=== PATIENT | female | born 1990 | race Caucasian/White ===

== ENCOUNTER 2022-01-10 13:53 | Emergency (ER) | payer SELFPAY ==
--- NOTE | 2022-01-10 14:00 | ERPHSYRPT ---
- History of Present Illness Time Seen by Provider: 01/10/22 13:59 Source: patient Exam Limitations: no limitations Physician History: This is a 31-year-old overweight white female with no local physician who moved to this area approximately 2 months ago from [place] and is diabetic. She presents with approximately 2-day history of enlarging right neck mass. She is not short of breath but she does have some discomfort that is mild when swallowing. She does smoke daily. She is never had anything like this in the past. Timing/Duration: day(s) (2) Cough Quality/Degree: no cough Possible Cause: no prior episodes Associated Symptoms: sore throat, other (Right neck massenlarging) Allergies/Adverse Reactions: hydromorphone [From Dilaudid] Allergy (Severe, Verified 01/10/22 14:06) Difficulty Breathing Home Medications: Metformin HCl 500 mg [Glucophage 500 MG] 1,000 mg PO HS 01/10/22 [History] Travel Risk - International Travel Have you traveled outside of the country in past 3 weeks: No - Coronavirus Screening Are you exhibiting any of the following symptoms?: No Close contact with a COVID-19 positive Pt in past 14-21 Days: No - Review of Systems Constitutional: No Symptoms Eyes: No Symptoms Ears, Nose, & Throat: Throat Pain (Mild), Other (Right neck mass) Respiratory: No Symptoms Cardiac: No Symptoms Abdominal/Gastrointestinal: No Symptoms Genitourinary Symptoms: No Symptoms Musculoskeletal: No Symptoms Skin: No Symptoms Neurological: No Symptoms Psychological: No Symptoms Endocrine: No Symptoms Hematologic/Lymphatic: No Symptoms Immunological/Allergic: No Symptoms All Other Systems: Reviewed and Negative - Past Medical History Pertinent Past Medical History: Yes - Past Surgical History Past Surgical History: Yes - Nursing Vital Signs Nursing Vital Signs: Initial Vital Signs Temperature 97.6 F 01/10/22 13:59 Respiratory Rate 16 01/10/22 13:59 Pain Scale Pain Intensity 0 - Physical Exam General Appearance: no apparent distress, alert, anxiety, obese Eye Exam: PERRL/EOMI, eyes nml inspection Ears, Nose, Throat Exam: pharynx normal, moist mucous membranes, other (Palpable right mass? Cervical lymphadenopathy) Neck Exam: supple, full range of motion, lymphadenopathy (Right side), other (No stridor) Respiratory Exam: normal breath sounds, lungs clear, airway intact, No chest tenderness, No respiratory distress, No rhonchi, No wheezing, No stridor Cardiovascular Exam: regular rate/rhythm, normal heart sounds, normal peripheral pulses Gastrointestinal/Abdomen Exam: No tenderness Pelvic Exam: not done Rectal Exam: not done Back Exam: normal inspection, normal range of motion, No CVA tenderness, No vertebral tenderness Extremity Exam: normal inspection, normal range of motion, pelvis stable Neurologic Exam: alert, oriented x 3, cooperative, hospice case manager II-XII nml as tested, normal mood/affect, nml cerebellar function, nml station & gait, sensation nml Skin Exam: normal color, warm, dry Lymphatic Exam: adenopathy (Right neck cervical chain) SpO2 Interpretation: normal O2 Delivery: Room Air - Course Nursing assessment & vital signs reviewed: Yes Ordered Tests: Active Orders 24 hr Category Date Time Status NECK WO CONTRAST [CT] Stat Exams 01/10/22 14:53 Completed COVID AG-BINAX NOW RAPID TEST Stat Lab 01/10/22 14:13 Stop Req COVID AG-BINAX NOW RAPID TEST Stat Lab 01/10/22 14:21 Completed INFLUENZA A+B SHONDA Stat Lab 01/10/22 14:13 Stop Req INFLUENZA A+B SHONDA Stat Lab 01/10/22 14:21 Completed Lab/Rad Data: Laboratory Results 01/10/22 01/10/22 01/10/22 Range/Units Unknown 14:21 14:21 Influenza Type A Ag NEGATIVE (NEGATIVE) Influenza Type B Ag NEGATIVE (NEGATIVE) SARS-CoV-2 Ag (Rapid) NEGATIVE (NEGATIVE) Group A Strep Antibody NOT DETECTED (NEGATIVE) - Progress Progress: improved, re-examined Air Movement: good Progress Note: 01/10/22 15:22 CAT scan of the soft tissue of the neck shows enlarged cervical node, bilateral cervical and submandibular lymph nodes. Markedly enlarged Davis tonsils narrows oropharynx bilaterally. Medical decision making: This patient does not have stridor. She has no respiratory or esophageal compromise. She is tolerating her secretions well. We will place her on a liquid diet, provide her with injectable Rocephin and Solu-Medrol to treat tonsillitis. We will have her return to the emergency department tomorrow morning for a recheck. Blood Culture(s) Obtained: No Antibiotics given: Yes Counseled pt/family regarding: diagnosis, need for follow-up, rad results - Departure Departure Disposition: Home Clinical Impression: Tonsillitis Condition: Stable Critical Care Time: No Referrals: DOCTOR,NO FAMILY [Primary Care Provider] - Follow up/PCP as directed Additional Instructions: Drink clear liquids and full liquids. Return to the emergency department tomorrow morning after 8 AM for reevaluation. Return sooner if you feel you are starting to have respiratory or esophageal compromise. Prescriptions: Prednisone 10 mg [Deltasone 10 mg] 10 mg PO TID #12 tablet Azithromycin 250 mg [Zithromax 250 MG TABLET] 250 mg PO ZPACK #6 tablet
[2022-01-10 14:45] LABS: INFLUENZA A NEGATIVE (NEGATIVE); INFLUENZA B NEGATIVE (NEGATIVE)
[2022-01-10 14:47] LABS: COVID AG -BINAX NOW RAPID TEST NEGATIVE (NEGATIVE)
--- NOTE | 2022-01-10 15:17 | XRAY ---
Indication: Right neck mass. Multiple contiguous axial images obtained through the neck without contrast. Cutaneous BB placed over region of interest. Comparison: None Right lateral neck cutaneous BB is seen at level of hyoid. There is underlying enlarged lymph node measuring 2.0 x 2.3 x 4.0 cm interposed between the right sternocleidomastoid muscle and submandibular gland. Additional smaller enlarged cervical and submandibular nodes are present bilaterally. Markedly enlarged palatine tonsils narrows the oropharynx bilaterally. Adenoids minimally prominent. Normal epiglottis. Major arteries and veins are normal in course and caliber. Parotid and submandibular glands are bilaterally symmetric. Thyroid gland appears homogeneous. Multiple lip and nasal jewelry present. Osseous structures intact without suspicious bony lesions. Base of the brain and visualized paranasal sinuses and mastoid air cells are clear. Lung apices are clear. Impression: 1. Right neck mass corresponds to a enlarged cervical node with measurements above. Additional bilateral cervical and submandibular enlarged lymph nodes all presumed reactive. 2. Markedly enlarged palatine tonsils narrows the oropharynx.
[2022-01-10 15:20] VITALS: O2SAT 97
[2022-01-10] MEDS ORDERED: Rocephin 1000 MG INJ IM ONE (15:21)
[2022-01-10] MEDS ORDERED: solu-MEDROL 125 MG, Sterile H2O 10 ml 2 ML IM ONE ×2 (15:22)
[2022-01-10] MEDS ORDERED: Rocephin 1000 MG INJ ONE (15:31)
[2022-01-10] MEDS ORDERED: solu-MEDROL ONE (15:31)
[2022-01-10] MEDS ORDERED: Sterile H2O 10 ml IJ ONE (15:31)
[2022-01-10] MEDS ORDERED: XYLOCAINE 1% HCL 20 ML MDV ONE (15:31)
[2022-01-10 16:01] VITALS: BP 141/102; PULSE 87
== END 2022-01-10 16:01 | disposition home or self-care (01) ==
LOC: ED 13:53
DX: J03.90 Acute tonsillitis, unspecified (principal); R22.1 Localized swelling, mass and lump, neck; Z72.0 Tobacco use; E11.9 Type 2 diabetes mellitus without complications; Z79.84 Long term (current) use of oral hypoglycemic drugs; Z79.52 Long term (current) use of systemic steroids
CPT/HCPCS: 70490; 87400; 87651; 96372; 99000; 99284; J0696; J2930